=== PATIENT | female | born 1995 | race Caucasian/White ===

== ENCOUNTER → 2018-03-29 | Outpatient (REF) | payer BC | LOC: M SFHCLERA 19:25 | DX: J02.9 Acute pharyngitis, unspecified (principal) ==

== ENCOUNTER → 2018-11-23 | Outpatient (REF) | payer BC | LOC: M SFHCLERA 11:47 | PROVIDERS: ATTEND Nurse Practitioner Family | DX: R53.81 Other malaise (principal) ==

== ENCOUNTER → 2019-08-01 | Outpatient (CLI) | payer BC ==
--- NOTE | 2019-08-01 19:16 | REP ---
Clinical: Persistent cough . Comparison: None . Technique: PA and lateral. Findings: The mediastinum and cardiac silhouette are normal. The lung dale are clear and without acute consolidation, effusion, or pneumothorax. The skeletal structures are intact and normal. Impression: 1. No acute cardiopulmonary process. Electronically Signed by Luke Adams MD 08/01/2019 07:08 P
== END ==
LOC: M LRY 18:53
PROVIDERS: ATTEND Nurse Practitioner Family
DX: R05 Cough (principal)